=== PATIENT | male | born 1975 | race Caucasian/White ===

== ENCOUNTER 2016-06-24 17:32 | Emergency (ER) | payer SELFPAY ==
[2016-06-24] MEDS ORDERED: IPRATROPIUM/ALBUTEROL 0.5-2.5 MG/3 ML AMPUL NEB ONE (18:49)
[2016-06-24] MEDS ORDERED: PREDNISONE 20 MG TABLET PO ONE (18:49)
--- NOTE | 2016-06-24 18:54 | ER Document Report ---
ED Medical Screen (RME) - General Chief Complaint: Shortness Of Breath Stated Complaint: SHORTNESS OF BREATH,CHEST TIGHTNESS Mode of Arrival: Ambulatory Information source: Patient TRAVEL OUTSIDE OF THE U.S. IN LAST 30 DAYS: No - HPI Onset: Yesterday Onset/Duration: Gradual, Persistent Quality of pain: No pain Severity: Moderate Associated Symptoms: Chills, Cough (nonproductive), Sweating Exacerbated by: Denies Relieved by: Denies Similar symptoms previously: Yes - NOT RECENT Recently seen / treated by doctor: No Notes: 06/24/16 18:52 RAN OUT OF [email or web address] YESTERDAY - Related Data Smoking: Non-smoker Frequency of alcohol use: Occasional Drug Abuse: None Allergies/Adverse Reactions: amoxicillin Allergy (Verified 06/24/16 18:46) Penicillins Allergy (Verified 06/24/16 18:46) Past Medical History - General Information source: Patient - Social History Cigarette use (# per day): No Chew tobacco use (# tins/day): No Frequency of alcohol use: Occasional Drug Abuse: None Lives with: Spouse/Significant other Family history: None - Past Medical History Cardiac Medical History: Reports: None Pulmonary Medical History: Reports: Hx Asthma Neurological Medical History: Reports: None Endocrine Medical History: Reports: None Renal/ Medical History: Reports: None. Denies: Hx Peritoneal Dialysis Malignancy Medical History: Reports None GI Medical History: Reports: None Musculoskeltal Medical History: Reports None Psychiatric Medical History: Reports: None Surgical Hx: Negative Review of Systems - Review of Systems Constitutional: See HPI EENT: No symptoms reported Cardiovascular: No symptoms reported Respiratory: See HPI Physical Exam - Vital signs Vitals: Temp Pulse Resp BP Pulse Ox 97.6 F 82 20 146/100 H 96 06/24/16 17:50 06/24/16 17:50 06/24/16 17:50 06/24/16 17:50 06/24/16 17:50 Interpretation: Hypertensive - General General appearance: Appears well, Alert In distress: None - HEENT Head: Normocephalic Eyes: Normal Ears: Normal Nasal: Normal Mouth/Lips: Normal Mucous membranes: Normal - Respiratory Respiratory status: No respiratory distress Breath sounds: Rhonchi, Wheezing Course - Vital Signs Vital signs: Temp Pulse Resp BP Pulse Ox 97.6 F 82 20 146/100 H 96 06/24/16 17:50 06/24/16 17:50 06/24/16 17:50 06/24/16 17:50 06/24/16 17:50
[2016-06-24 19:23] LABS: ABSOLUTE BASOPHILS # (AUTO) 0.1 10^3/uL (0.0-0.2); ABSOLUTE EOSINOPHILS # (AUTO) 0.9 10^3/uL (0.0-0.6); ABSOLUTE MONOCYTES (AUTO) 0.9 10^3/uL (0.1-1.4); ABSOLUTE NEUT (AUTO) 7.2 10^3/uL (1.7-8.2); BASOPHILS % (AUTO) 0.9 % (0-2); EOSINOPHILS % (AUTO) 7.2 % (0-6); HEMATOCRIT 46.2 % (37.9-51.0); HEMOGLOBIN 15.3 g/dL (13.5-17.0); HGB HCT DIFFERENCE -0.3; MEAN CORPUSCULAR HEMOGLOBIN 29.1 pg (27.0-33.4); MEAN CORPUSCULAR HGB CONC 33.1 g/dL (32.0-36.0); MEAN CORPUSCULAR VOLUME 88 fl (80-97); MONOCYTES % (AUTO) 7.1 % (3-13); RED BLOOD COUNT 5.26 10^6/uL (4.35-5.55); RED CELL DISTRIBUTION WIDTH 13.7 % (11.5-14.0); SEGMENTED NEUTROPHILS % (AUTO) 59.8 % (42-78)
--- NOTE | 2016-06-24 19:29 | ER Document Report ---
ED General - General Chief Complaint: Shortness Of Breath Stated Complaint: SHORTNESS OF BREATH,CHEST TIGHTNESS Mode of Arrival: Ambulatory Information source: Patient Notes: This is a 40-year-old male with a past medical history significant for asthma that has required hospitalization and intubation several years in the past who presents with increase in weakness for the past 2 days. Of note he recently moved here from [place] and does not have a primary care physician at this time. He did recently run out of his inhaler but has been using his nebulizer. He denies any fevers or chills. He is tolerating PO without difficulty. TRAVEL OUTSIDE OF THE U.S. IN LAST 30 DAYS: No - Related Data Allergies/Adverse Reactions: amoxicillin Allergy (Verified 06/24/16 18:46) Penicillins Allergy (Verified 06/24/16 18:46) Past Medical History - General Information source: Patient - Social History Smoking Status: Former Smoker Cigarette use (# per day): No Chew tobacco use (# tins/day): No Frequency of alcohol use: Occasional Drug Abuse: None Lives with: Spouse/Significant other Family History: Reviewed & Not Pertinent Patient has suicidal ideation: No Patient has homicidal ideation: No - Past Medical History Cardiac Medical History: Reports: None Pulmonary Medical History: Reports: Hx Asthma Neurological Medical History: Reports: None Endocrine Medical History: Reports: None Renal/ Medical History: Reports: None. Denies: Hx Peritoneal Dialysis Malignancy Medical History: Reports None GI Medical History: Reports: None Musculoskeltal Medical History: Reports None Psychiatric Medical History: Reports: None Surgical Hx: Negative Review of Systems - Review of Systems Constitutional: denies: Chills, Fever EENT: No symptoms reported Cardiovascular: No symptoms reported. denies: Chest pain Respiratory: See HPI Gastrointestinal: No symptoms reported. denies: Abdominal pain, Vomiting Genitourinary: No symptoms reported Musculoskeletal: No symptoms reported Skin: No symptoms reported Hematologic/Lymphatic: No symptoms reported Neurological/Psychological: No symptoms reported Physical Exam - Vital signs Vitals: Temp Pulse Resp BP Pulse Ox 97.6 F 82 20 146/100 H 96 06/24/16 17:50 06/24/16 17:50 06/24/16 17:50 06/24/16 17:50 06/24/16 17:50 - Notes Notes: PHYSICAL EXAMINATION: GENERAL: Well-appearing, well-nourished and in no acute distress. Pleasant and conversant, no conversational dyspnea. HEAD: Atraumatic, normocephalic. EYES: Pupils equal round and reactive to light, extraocular movements intact, sclera anicteric, conjunctiva are normal. ENT: nares patent, oropharynx clear without exudates. Moist mucous membranes. NECK: Normal range of motion, supple without lymphadenopathy LUNGS: Diffuse bilateral scattered inspiratory wheezes. No rhonchi or rales. Good air movement bilaterally. HEART: Regular rate and rhythm without murmurs ABDOMEN: Soft, nontender, normoactive bowel sounds. No guarding, no rebound. No masses appreciated. EXTREMITIES: Normal range of motion, no pitting or edema. No cyanosis. NEUROLOGICAL: Cranial nerves grossly intact. Normal speech. No gross focal motor or sensory deficits appreciated. PSYCH: Normal mood, normal affect. SKIN: Warm, Dry, normal turgor, no rashes or lesions noted. Course - Re-evaluation Re-evalutation: 06/24/16 20:56 Patient reevaluated. He states that he feels much better after the 2 nebs. His lung exam demonstrates good air movement bilaterally with just faint occasional scattered expiratory wheeze. Pt will be discharged on prednisone and zpack, and Breo and albuterol MDI refilled. He is instructed to arrange primary care physician in this area, and we discussed strict return precautions. He is very comfortable with this plan, all questions answered. - Vital Signs Vital signs: Temp Pulse Resp BP Pulse Ox 97.6 F 84 20 134/96 H 98 06/24/16 19:50 06/24/16 20:53 06/24/16 20:53 06/24/16 20:53 06/24/16 20:53 - Laboratory Result Diagrams: 06/24/16 19:02 06/24/16 19:02 Laboratory results interpreted by me: 06/24/16 06/24/16 19:02 19:02 WBC 12.0 H Eosinophils % 7.2 H Absolute Eosinophils 0.9 H AST 16 L - EKG Interpretation by Me Additional EKG results interpreted by me: 06/24/16 19:28 EKG at 1754 demonstrates normal sinus rhythm with a rate of 85. QT and QRS intervals are within normal limits. Normal axis. There is no ST segment elevation or depression. Discharge - Discharge Clinical Impression: Asthma exacerbation Condition: Stable Disposition: HOME, SELF-CARE Additional Instructions: ASTHMA: You have been diagnosed as having asthma. This is a condition where there is episodic tightness in the bronchial tubes. Allergies, infections, and polluted or cold air may be contributing factors. Emergency treatment of a severe asthma attack may include adrenaline shots , or bronchodilator aerosol. You may feel lightheaded, have a decreased exercise tolerance and a rapid pulse for an hour or two. Rest and get plenty of fluids. Home treatment of asthma requires bronchodilator drugs. These can be administered by injection, inhalation, or by mouth. Antibiotics and corticosteroids may be required for some patients. You should avoid chemical fumes, dusts, pollens, and exercising in very cold or dry air. If you smoke, stop!! If you develop a fever, increased wheezing, chest pain, or severe shortness of breath, you should contact the doctor immediately. STEROID MEDICATION: You have been given an injection of or oral medicine of the cortisone/ steroid class. This medication is used to control inflammation or allergy. [place] t is usually only given for a short period of time, until the acute process subsides. There are usually no side effects from short-term use of cortisone-like medications. Some persons feel an increased sense of well-being and are not sleepy at bedtime. Long-term use of cortisone medications is best avoided, unless required for a severe condition. If your condition does not remit, or relapses after the course of corticosteroid medication, you should consult your physician. INHALED BRONCHODILATORS: You have received treatment(s) of and/or prescription for an inhaled bronchodilator -- a medication which stimulates the airways in the lung to dilate. This improves the flow of air in asthma, bronchitis, and emphysema. These medicines have some similarity to adrenaline, and can cause similar side effects: shakiness, racing heart, and a sense of nervousness. These side effects decrease with time. Contact your doctor if these side effects are severe. Do not over-use the medicine. Too-frequent use of the inhaler may make it ineffective. Call your doctor if the inhaler is not controlling your symptoms at the prescribed doses. ANTIBIOTIC THERAPY: You have been given an antibiotic prescription. It's important that you take all the medication, unless instructed otherwise by your physician. Failure to complete the entire course can result in relapse of your condition. Common side effects of antibiotics include nausea, intestinal cramping, or diarrhea. Women may develop vaginal yeast infections, and babies can get yeast (thrush) in the mouth following the use of antibiotics. Contact your physician if you develop significant side effects from this medication. Allergy to this antibiotic can result in hives, wheezing, faintness, or itching. If symptoms of allergy occur, stop the medication and call your doctor. AZITHROMYCIN: Azithromycin (Zithromax) is a broad spectrum antibiotic in the same class as erythromycin. It can treat a variety of bacterial infections, but is most frequently used for respiratory infections. Azithromycin is extremely long-lasting. It accumulates in body tissues and continues to kill bacteria for many days. In order to improve absorption, Azithromycin should be taken at least one hour before or two hours after a meal. It does not have the same strong tendency to upset the stomach as erythromycin and is usually very well tolerated. Patients who have had a rash or other true allergic reactions to erythromycin should not take this medication. Call if you develop gastrointestinal distress, severe diarrhea, rash, hives, itching, or shortness of breath. FOLLOW-UP CARE: If you have been referred to a physician for follow-up care, call the physician s office for an appointment as you were instructed or within the next two days. If you experience worsening or a significant change in your symptoms, notify the physician immediately or return to the Emergency Department at any time for re-evaluation. Prescriptions: Albuterol Sulfate [Proair HFA Inhalation Aerosol 8.5 gm MDI] 2 puff IH Q4H PRN # 1 mdi PRN Reason: Azithromycin [Zithromax 250 mg Tablet] 250 mg PO ASDIR PRN #6 tablet PRN Reason: Fluticasone/Vilanterol [Breo Ellipta 200-25 Mcg INH] 1 each IH DAILY #1 [facility] Prednisone [Deltasone 20 mg Tablet] 3 tab PO DAILY 4 Days Forms: Return to Work
[2016-06-24 19:37] LABS: ALANINE AMINOTRANSFERASE 27 U/L (21-72); ALBUMIN 4.1 g/dL (3.5-5.0); ALKALINE PHOSPHATASE 74 U/L (38-126); ANION GAP 14 (5-19); ASPARTATE AMINO TRANSFERASE 16 U/L (17-59); BILIRUBIN,DIRECT 0.3 mg/dL (0.0-0.4); BILIRUBIN,TOTAL 0.5 mg/dL (0.2-1.3); BLOOD UREA NITROGEN 14 mg/dL (7-20); CALCIUM 9.3 mg/dL (8.4-10.2); CARBON DIOXIDE 24 mmol/L (22-30); CHLORIDE 104 mmol/L (98-107); CREATININE RESULT 0.69 mg/dL (0.52-1.25); GLUCOSE 98 mg/dL (75-110); POTASSIUM 4.3 mmol/L (3.6-5.0); SODIUM 141.7 mmol/L (137-145)
[2016-06-24] MEDS ORDERED: LEVALBUTEROL HCL NEB 1.25 MG/3 ML AMPUL NEB ONE (19:49)
[2016-06-24 20:53] VITALS: BP 134/96
--- NOTE | 2016-06-25 08:09 | EKG REPORT ---
SEVERITY:- ABNORMAL ECG - SINUS RHYTHM CONSIDER POSTERIOR INFARCT : Confirmed by: Richi Erazo MD 25-Jun-2016 08:09:00
== END 2016-06-24 21:14 | disposition home or self-care (01) ==
LOC: ER 17:32
DX: J45.901 Unspecified asthma with (acute) exacerbation (principal); R06.02 Shortness of breath; Z87.891 Personal history of nicotine dependence
CPT/HCPCS: 93005; 94640 ×2; 99285; 36415; 85025; 80053; 71020; 93010; J7512; J3490; J7620

== ENCOUNTER 2016-12-17 15:31 | Emergency (ER) | payer OTHER ==
[2016-12-17] MEDS ORDERED: NORMAL SALINE 1000 ML 1,000 ML IV ONE (15:41)
--- NOTE | 2016-12-17 15:44 | ER Document Report ---
ED Medical Screen (RME) - General Stated Complaint: VOMITING Time Seen by Provider: 12/17/16 15:40 Mode of Arrival: Ambulatory Information source: Patient, Relative TRAVEL OUTSIDE OF THE U.S. 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 He has had diarrhea intermittently for several days. - Related Data Allergies/Adverse Reactions: amoxicillin Allergy (Verified 06/24/16 18:46) Penicillins Allergy (Verified 06/24/16 18:46) Past Medical History - Social History Family history: None Pulmonary Medical History: Reports: Hx Asthma Renal/ Medical History: Denies: Hx Peritoneal Dialysis
[2016-12-17 16:20] LABS: ABSOLUTE BASOPHILS # (AUTO) 0.1 10^3/uL (0.0-0.2); ABSOLUTE EOSINOPHILS # (AUTO) 0.4 10^3/uL (0.0-0.6); ABSOLUTE LYMPHOCYTES (AUTO) 2.2 10^3/uL (0.5-4.7); ABSOLUTE MONOCYTES (AUTO) 0.8 10^3/uL (0.1-1.4); ABSOLUTE NEUT (AUTO) 13.1 10^3/uL (1.7-8.2); BASOPHILS % (AUTO) 0.7 % (0-2); EOSINOPHILS % (AUTO) 2.5 % (0-6); HEMATOCRIT 46.8 % (37.9-51.0); HGB HCT DIFFERENCE 1.2; LYMPHOCYTES % (AUTO) 13.2 % (13-45); MEAN CORPUSCULAR HEMOGLOBIN 30.2 pg (27.0-33.4); MEAN CORPUSCULAR HGB CONC 34.2 g/dL (32.0-36.0); MEAN CORPUSCULAR VOLUME 88 fl (80-97); RED CELL DISTRIBUTION WIDTH 13.3 % (11.5-14.0); SEGMENTED NEUTROPHILS % (AUTO) 78.6 % (42-78); WHITE BLOOD COUNT 16.7 10^3/uL (4.0-10.5)
[2016-12-17 16:38] LABS: APPEARANCE,URINE SLIGHTLY-CLOUDY; BILIRUBIN,URINE NEGATIVE (NEGATIVE); GLUCOSE, URINE NEGATIVE (NEGATIVE); KETONES,URINE NEGATIVE (NEGATIVE); LEUKOCYTE ESTERASE,URINE NEGATIVE (NEGATIVE); NITRITE,URINE NEGATIVE (NEGATIVE); PROTEIN,URINE NEGATIVE (NEGATIVE); URINE SPECIFIC GRAVITY 1.028; UROBILINOGEN,URINE NEGATIVE mg/dL (<2.0)
[2016-12-17 16:45] LABS: ALANINE AMINOTRANSFERASE 29 U/L (21-72); ALBUMIN 4.5 g/dL (3.5-5.0); ALKALINE PHOSPHATASE 81 U/L (38-126); ANION GAP 16 (5-19); ASPARTATE AMINO TRANSFERASE 15 U/L (17-59); BILIRUBIN,DIRECT 0.3 mg/dL (0.0-0.4); BILIRUBIN,TOTAL 0.5 mg/dL (0.2-1.3); BLOOD UREA NITROGEN 16 mg/dL (7-20); CALCIUM 9.6 mg/dL (8.4-10.2); CARBON DIOXIDE 22 mmol/L (22-30); CHLORIDE 105 mmol/L (98-107); CREATININE RESULT 0.86 mg/dL (0.52-1.25); GLUCOSE 117 mg/dL (75-110); POTASSIUM 4.5 mmol/L (3.6-5.0); SODIUM 143.1 mmol/L (137-145); TOTAL PROTEIN 7.8 g/dL (6.3-8.2)
[2016-12-17] MEDS ORDERED: NORMAL SALINE 1000 ML 1,000 ML IV PRN (18:03)
[2016-12-17] MEDS ORDERED: ONDANSETRON HCL INJ/PF 4 MG/2 ML SDV IV ONE (18:03)
--- NOTE | 2016-12-17 18:23 | ER Document Report ---
ED GI/ - General Chief Complaint: Abdominal Pain Stated Complaint: VOMITING Time Seen by Provider: 12/17/16 15:40 Mode of Arrival: Ambulatory Information source: Patient TRAVEL OUTSIDE OF THE U.S. IN LAST 30 DAYS: No - HPI Patient complains to provider of: Abdominal pain, Diarrhea Onset: This morning Timing/Duration: Sudden Quality of pain: Achy, Cramping Severity at maximum: Moderate Severity in ED: Moderate Pain Level: 3 Location: Epigastric, LUQ, LLQ Associated symptoms: Diarrhea, Nausea Exacerbated by: Denies Relieved by: Denies Notes: 12/17/16 18:21 Patient is a 41-year-old male presenting to the emergency room complaining of crampy abdominal pain with "explosive diarrhea" that started around 2:00 in the morning, he reports nasty taste in his mouth consistent with acid reflux, and nausea but no vomiting, he had a subjective fever this morning as well, he is concerned he may have some sort of infectious diarrhea as he ate chicken livers last night that he believed were fully cooked, and his works in [employer] may have come in contact with C. difficile recently, although she is not ill, he is also concerned that he had a nosebleed last night around 10 minutes after having some sneezing, patient denies any urinary symptoms - Related Data Allergies/Adverse Reactions: amoxicillin Allergy (Verified 06/24/16 18:46) Penicillins Allergy (Verified 06/24/16 18:46) Past Medical History - General Information source: Patient, Relative - Social History Smoking Status: Former Smoker Chew tobacco use (# tins/day): No Frequency of alcohol use: None Drug Abuse: None Family History: Reviewed & Not Pertinent Patient has suicidal ideation: No Patient has homicidal ideation: No - Past Medical History Cardiac Medical History: Reports: Hx Hypertension Pulmonary Medical History: Reports: Hx Asthma Renal/ Medical History: Denies: Hx Peritoneal Dialysis GI Medical History: Reports: Hx Gastroesophageal Reflux Disease - EOE Past Surgical History: Reports: Hx Cardiac Catheterization - 2009 in [place], no stents - Immunizations Hx Diphtheria, Pertussis, Tetanus Vaccination: Yes Review of Systems - Review of Systems Constitutional: Chills, Fever EENT: No symptoms reported Cardiovascular: No symptoms reported Respiratory: No symptoms reported Gastrointestinal: See HPI Genitourinary: No symptoms reported Male Genitourinary: No symptoms reported Musculoskeletal: No symptoms reported Skin: No symptoms reported Hematologic/Lymphatic: No symptoms reported Neurological/Psychological: No symptoms reported -: Yes All other systems reviewed and negative Physical Exam - Vital signs Vitals: Temp Pulse Resp BP Pulse Ox 98.2 F 96 18 132/84 H 96 12/17/16 15:39 12/17/16 15:39 12/17/16 15:39 12/17/16 15:39 12/17/16 15:39 Interpretation: Normal - General General appearance: Appears well, Alert - HEENT Head: Normocephalic, Atraumatic Eyes: Normal Pupils: PERRL - Respiratory Respiratory status: No respiratory distress Chest status: Nontender Breath sounds: Normal Chest palpation: Normal - Cardiovascular Rhythm: Regular Heart sounds: Normal auscultation Murmur: No - Abdominal Inspection: Normal Distension: Distended - mild distention Bowel sounds: Normal Tenderness: Tender - Epigastric, left upper quadrant, left lower quadrant Organomegaly: No organomegaly - Back Back: Normal, Nontender - Extremities General upper extremity: Normal inspection, Nontender, Normal color, Normal ROM , Normal temperature General lower extremity: Normal inspection, Nontender, Normal color, Normal ROM , Normal temperature, Normal weight bearing. No: Franny's sign - Neurological Neuro grossly intact: Yes Cognition: Normal Orientation: AAOx4 Leatha Coma Scale Eye Opening: Spontaneous Leopold Coma Scale Verbal: Oriented Leopold Coma Scale Motor: Obeys Commands Leatha Coma Scale Total: 15 Speech: Normal Motor strength normal: LUE, RUE, LLE, RLE Sensory: Normal - Psychological Associated symptoms: Normal affect, Normal mood - Skin Skin Temperature: Warm Skin Moisture: Dry Skin Color: Normal Course - Re-evaluation Re-evalutation: 12/17/16 19:08 Patient resting comfortably, reports no change in condition, findings were discussed with patient and at bedside which are consistent with infectious diarrhea process, he was advised to follow-up for repeat imaging of the abdomen given the "leon mesentery" findings which could be a concern for lymphoma, patient agrees to follow-up, patient is otherwise stable for discharge, he will be started on Cipro and Flagyl and provided with prescription for Zofran as well as information for follow-up, advised to return if symptoms worsen or fail to improve over the next 2-3 days, patient and acknowledge understanding and agreement with this plan - Vital Signs Vital signs: Temp Pulse Resp BP Pulse Ox 98.0 F 83 16 125/80 97 12/17/16 17:49 12/17/16 17:49 12/17/16 17:49 12/17/16 17:49 12/17/16 17:49 - Laboratory Result Diagrams: 12/17/16 16:06 12/17/16 16:06 Laboratory results interpreted by me: 12/17/16 12/17/16 12/17/16 15:54 16:06 16:06 WBC 16.7 H Seg Neutrophils % 78.6 H Absolute Neutrophils 13.1 H Glucose 117 H AST 15 L Urine Blood SMALL H - Diagnostic Test Radiology reviewed: Image reviewed, Reports reviewed Discharge - Discharge Clinical Impression: Panniculitis Diarrhea Qualifiers: Diarrhea type: infectious Qualified Code(s): A09 - Infectious gastroenteritis and colitis, unspecified Condition: Stable Disposition: HOME, SELF-CARE Instructions: Abdominal Pain ([facility]), Diarrhea, Nonspecific ([facility]), Gastroenterology Additional Instructions: Follow up with your primary care provider and social worker clinical in one to 2 days. Return to the emergency room immediately if symptoms worsen or any additional concerns. Prescriptions: Ciprofloxacin HCl [Cipro 500 mg Tablet] 500 mg PO BID #20 tablet Metronidazole [Flagyl 500 mg Tablet] 500 mg PO TID #30 tablet Ondansetron [Zofran Odt 4 mg Tablet] 1 - 2 tab PO Q4H #20 tab.rapdis Forms: Return to Work
--- NOTE | 2016-12-17 18:50 | RADIOLOGY REPORT (SQ) ---
EXAM DESCRIPTION: CT ABD/PELVIS WITH IV ONLY COMPLETED DATE/TIME: 12/17/2016 6:39 pm REASON FOR STUDY: left side pain, diarrhea COMPARISON: None. TECHNIQUE: CT scan of the abdomen and pelvis performed using helical scanning technique with dynamic intravenous contrast injection. No oral contrast. Images reviewed with lung, soft tissue, and bone windows. Reconstructed coronal and sagittal MPR images reviewed. Delayed images for evaluation of the urinary system also acquired. All images stored on PACS. All CT scanners at this facility use dose modulation, iterative reconstruction, and/or weight based d osing when appropriate to reduce radiation dose to as low as reasonably achievable (ALARA). [facility]: Dose Right [facility]: CareDose [facility]: Dose Right [facility]: Teradose 4D [facility]: Captricity CONTRAST TYPE AND DOSE: 100 mL Isovue 370- low osmolar. RENAL FUNCTION: None required. The patient is less than 50 years old. RADIATION DOSE: . LIMITATIONS: None. FINDINGS: LOWER CHEST: No significant findings. No nodules or infiltrates. LIVER: Normal size. No masses. No dilated ducts. SPLEEN: Normal size. No focal lesions. PANCREAS: No masses. No significant calcifications. No adjacent inflammation or peripancreatic fluid collections. Pancreatic duct not dilated. GALLBLADDER: No identified stones by CT criteria. No inflammatory changes to suggest cholecystitis. ADRENAL GLANDS: No significant masses or asymmetry. RIGHT KIDNEY AND URETER: No solid masses. No significant calcifications. No hydronephrosis or hyd roureter. LEFT KIDNEY AND URETER: No solid masses. No significant calcifications. No hydronephrosis or hydr oureter. AORTA AND VESSELS: No aneurysm. No dissection. Renal arteries, SMA, celiac without stenosis. RETROPERITONEUM: No retroperitoneal adenopathy, hemorrhage or masses. BOWEL AND PERITONEAL CAVITY: Mild stranding involving the mesenteric root with scattered subcentimete r lymph nodes resulting in "leon mesentery". No masses or additional inflammatory changes. No free fluid or peritoneal masses. APPENDIX: Normal. PELVIS: No mass. No free fluid. Normal bladder. ABDOMINAL WALL: No masses. No hernias. BONES: No significant or acute findings. OTHER: No other significant finding. IMPRESSION: MILD LEON MESENTERY WHICH IS NONSPECIFIC MOST COMMONLY SEEN WITH PANNICULITIS. RECOMME ND SIX-MONTH FOLLOW-UP CT TO ENSURE STABILITY/ RESOLUTION IS EARLY NEOPLASTIC PROCESS SUCH LYMP EVARISTO COULD HAVE THIS APPEARANCE. NO ADDITIONAL ACUTE OR SIGNIFICANT FINDINGS. TECHNICAL DOCUMENTATION: JOB ID: [id number] Quality ID # [id number]: Final reports with documentation of one or more dose reduction techniques (e.g., Au tomated exposure control, adjustment of the mA and/or kV according to patient size, use of iterative reconstruction technique) 2010 [employer]- All Rights Reserved
[2016-12-17 18:54] VITALS: BP 125/80
[2016-12-17] MEDS ORDERED: CIPROFLOXACIN HCL 500 MG TABLET PO ONE (19:07)
[2016-12-17] MEDS ORDERED: METRONIDAZOLE 500 MG TABLET PO ONE (19:08)
[2016-12-17] MEDS ORDERED: ONDANSETRON ODT 4 MG TAB (6 TAB/DSPK) PO PRN (19:08)
== END 2016-12-17 19:53 | disposition home or self-care (01) ==
LOC: ER 15:31
DX: A09 Infectious gastroenteritis and colitis, unspecified (principal); M79.3 Panniculitis, unspecified; R50.9 Fever, unspecified; R10.13 Epigastric pain; R10.12 Left upper quadrant pain; R10.32 Left lower quadrant pain; I10 Essential (primary) hypertension; J45.909 Unspecified asthma, uncomplicated
CPT/HCPCS: 99284; 96361; 96374; 36415; 87045; 89055; 87205; 85025; 80053; 81001; 87493; 74177; J2405; J7030

== ENCOUNTER 2017-09-07 10:49 | Emergency (ER) | payer SELFPAY ==
[2017-09-07] MEDS ORDERED: ALBUTEROL SULFATE 0.083% NEB 2.5 MG/3 ML AMPUL NEB ONE (11:24)
[2017-09-07] MEDS ORDERED: METHYLPREDNISOLONE INJ 125 MG/2 ML SDV IV ONE (11:24)
[2017-09-07] MEDS ORDERED: IPRATROPIUM/ALBUTEROL 0.5-2.5 MG/3 ML AMPUL NEB ONE ×2 (11:24→14:08)
--- NOTE | 2017-09-07 11:25 | ER Document Report ---
ED Medical Screen (RME) - General Chief Complaint: Chest Pain Stated Complaint: CHEST PAIN Time Seen by Provider: 09/07/17 10:54 Mode of Arrival: Wheelchair Information source: Patient TRAVEL OUTSIDE OF THE U.S. IN LAST 30 DAYS: No - HPI Patient complains to provider of: Difficulty breathing, chest tightness, wheezing Onset: Last week Onset/Duration: Gradual, Persistent Quality of pain: Achy Severity: Moderate Pain Level: 3 Associated Symptoms: Cough (nonproductive) Similar symptoms previously: Yes Notes: 09/07/17 11:25 Patient is a 41-year-old non-smoker with a history of asthma presents to the emergency room with complaint of chest tightness with difficulty breathing and wheezing that has worsened over the past week, he uses nebulizer treatments at home with minimal intermittent relief - Related Data Allergies/Adverse Reactions: amoxicillin Allergy (Verified 06/24/16 18:46) Penicillins Allergy (Verified 06/24/16 18:46) Past Medical History - Social History Chew tobacco use (# tins/day): No Frequency of alcohol use: None Drug Abuse: None Family history: None - Past Medical History Cardiac Medical History: Reports: Hx Hypertension Pulmonary Medical History: Reports: Hx Asthma Renal/ Medical History: Denies: Hx Peritoneal Dialysis GI Medical History: Reports: Hx Gastroesophageal Reflux Disease - EOE Past Surgical History: Reports: Hx Cardiac Catheterization - 2009 in [place], no stents - Immunizations Hx Diphtheria, Pertussis, Tetanus Vaccination: Yes History of Influenza Vaccine for 11/2016 - 04/2017 Season: No Physical Exam - Vital signs Vitals: Temp Pulse Resp BP Pulse Ox 97.4 F 71 16 130/82 H 96 09/07/17 10:59 09/07/17 10:59 09/07/17 10:59 09/07/17 10:59 09/07/17 10:59 Course - Vital Signs Vital signs: Temp Pulse Resp BP Pulse Ox 97.4 F 71 16 130/82 H 96 09/07/17 10:59 09/07/17 10:59 09/07/17 10:59 09/07/17 10:59 09/07/17 10:59 Doctor's Discharge - Discharge Referrals: SILVER OROZCO DO [Primary Care Provider] - Follow up as needed
[2017-09-07] MEDS ORDERED: IPRATROPIUM/ALBUTEROL 0.5-2.5 MG/3 ML AMPUL NEB SCH (11:45)
--- NOTE | 2017-09-07 11:45 | ER Document Report ---
ED Respiratory Problem - General Chief Complaint: Chest Pain Stated Complaint: CHEST PAIN Time Seen by Provider: 09/07/17 10:54 Mode of Arrival: Wheelchair Notes: Patient with a history of asthma who says he is wheezing and short of breath and difficulty breathing this been going on for about a week, but got worse this morning. Says he feels like he cannot breathe. Patient has a home nebulizer in which he uses albuterol. He also has a pro-air inhaler and uses Brio in his nebulizer. Patient says he is congested and has some cough but not producing much phlegm. Did notice some fever earlier this morning. Patient has a history of seizures. Has had 2 heart attacks. Hypertension. Stop smoking 11 years ago. TRAVEL OUTSIDE OF THE [place] IN LAST 30 DAYS: No - Related Data Allergies/Adverse Reactions: amoxicillin Allergy (Verified 06/24/16 18:46) Penicillins Allergy (Verified 06/24/16 18:46) Past Medical History - General Information source: Patient - Social History Smoking Status: Former Smoker Chew tobacco use (# tins/day): No Frequency of alcohol use: None Drug Abuse: None Family History: Reviewed & Not Pertinent Patient has suicidal ideation: No Patient has homicidal ideation: No - Past Medical History Cardiac Medical History: Reports: Hx Hypertension Pulmonary Medical History: Reports: Hx Asthma, Hx Pneumonia GI Medical History: Reports: Hx Gastroesophageal Reflux Disease - EOE Past Surgical History: Reports: Hx Cardiac Catheterization - 2009 in [place], no stents - Immunizations Hx Diphtheria, Pertussis, Tetanus Vaccination: Yes Review of Systems - Review of Systems Notes: REVIEW OF SYSTEMS: CONSTITUTIONAL : Fever this morning. EENT: Denies eye, ear, nose or mouth or throat pain or other symptoms. CARDIOVASCULAR: Denies chest pain. RESPIRATORY: See HPI. GASTROINTESTINAL: Denies abdominal pain or nausea, vomiting, or diarrhea. GENITOURINARY: Denies difficulty or painful urinating, urinary frequency, blood in urine. MUSCULOSKELETAL: Denies back or neck pain. Denies joint pain or swelling. SKIN: Denies rash or skin lesions. NEUROLOGICAL: Denies LOC or altered mental status. Denies headache. Denies sensory loss or motor deficits. ALL OTHER SYSTEMS REVIEWED AND NEGATIVE. Physical Exam - Vital signs Vitals: Temp Pulse Resp BP Pulse Ox 97.4 F 71 16 130/82 H 96 09/07/17 10:59 09/07/17 10:59 09/07/17 10:59 09/07/17 10:59 09/07/17 10:59 Interpretation: Normal, Other - O2 sat 96%. - Notes Notes: PHYSICAL EXAMINATION: GENERAL: Well-appearing, in no acute distress. Weight 141 kg. Vital signs are all normal. Not hypoxic. HEAD: Atraumatic, normocephalic. EYES: Pupils equal round and reactive to light, extraocular movements intact. ENT: oropharynx clear without exudates. Moist mucous membranes. NECK: Normal range of motion, supple. LUNGS: Diffuse expiratory wheezes bilaterally. No rales heard. HEART: Regular rate and rhythm without murmurs. No edema of the lower extremities. ABDOMEN: Soft, nontender. No guarding or rebound. No masses. BACK: No tenderness throughout entire back. EXTREMITIES: Normal range of motion without pain. Negative Homans bilaterally. NEUROLOGICAL: Normal speech, normal gait. Normal sensory, motor, and reflex exams. Awake, alert, and oriented x3. PSYCH: Normal mood, normal affect. SKIN: Warm, dry, no rashes. Course - Re-evaluation Re-evalutation: 09/07/17 11:45 Patient was started on nebulizer treatments and given 125 mg of Solu-Medrol IV. 09/07/17 14:06 Patient says he is now feeling somewhat better although still wheezing. Lungs do sound like they are more clear than they were although he does have some fine expiratory wheezes still present. Oxygen saturation is 96-98% on oxygen so I am discontinuing the oxygen. He has had 3 nebulizer treatments and I will give him a fourth and about a half hour. At that time, I will reassess him to see if he needs admission or not. 09/07/17 15:21 Patient sounds much better now. Only very fine wheezes heard in the upper anterior lung wheeler. Not hardly any heard posteriorly. Vital signs on room air or fine with his O2 sat running 93 or 94 up to 96-97% on room air. - Vital Signs Vital signs: Temp Pulse Resp BP Pulse Ox 97.5 F 83 20 121/91 H 95 09/07/17 15:30 09/07/17 15:30 09/07/17 15:30 09/07/17 15:30 09/07/17 15:30 - Laboratory Result Diagrams: 09/07/17 11:45 09/07/17 13:00 Laboratory results interpreted by me: 09/07/17 11:45 Eosinophils % 8.9 H Absolute Eosinophils 0.9 H Discharge - Discharge Clinical Impression: Asthma attack Condition: Stable Disposition: HOME, SELF-CARE Additional Instructions: ASTHMA: You have been diagnosed as having asthma. This is a condition where there is episodic tightness in the bronchial tubes. Allergies, infections, and polluted or cold air may be contributing factors. Emergency treatment of a severe asthma attack may include adrenaline shots , or bronchodilator aerosol. You may feel lightheaded, have a decreased exercise tolerance and a rapid pulse for an hour or two. Rest and get plenty of fluids. Home treatment of asthma requires bronchodilator drugs. These can be administered by injection, inhalation, or by mouth. Antibiotics and corticosteroids may be required for some patients. You should avoid chemical fumes, dusts, pollens, and exercising in very cold or dry air. If you smoke, stop!! If you develop a fever, increased wheezing, chest pain, or severe shortness of breath, you should contact the doctor immediately. STEROID MEDICATION: You have been given an injection of or oral medicine of the cortisone/ steroid class. This medication is used to control inflammation or allergy. [place] t is usually only given for a short period of time, until the acute process subsides. There are usually no side effects from short-term use of cortisone-like medications. Some persons feel an increased sense of well-being and are not sleepy at bedtime. Long-term use of cortisone medications is best avoided, unless required for a severe condition. If your condition does not remit, or relapses after the course of corticosteroid medication, you should consult your physician. INHALED BRONCHODILATORS: You have received treatment(s) of and/or prescription for an inhaled bronchodilator -- a medication which stimulates the airways in the lung to dilate. This improves the flow of air in asthma, bronchitis, and emphysema. These medicines have some similarity to adrenaline, and can cause similar side effects: shakiness, racing heart, and a sense of nervousness. These side effects decrease with time. Contact your doctor if these side effects are severe. Do not over-use the medicine. Too-frequent use of the inhaler may make it ineffective. Call your doctor if the inhaler is not controlling your symptoms at the prescribed doses. Continue to use your home medications as before. FOLLOW-UP CARE: If you have been referred to a physician for follow-up care, call the physician s office for an appointment as you were instructed or within the next two days. If you experience worsening or a significant change in your symptoms, notify the physician immediately or return to the Emergency Department at any time for re-evaluation. Prescriptions: Prednisone [Deltasone 10 mg Tablet] 10 mg PO ASDIR PRN #21 tablet PRN Reason: Referrals: SILVER OROZCO DO [Primary Care Provider] - Follow up as needed
[2017-09-07 11:56] LABS: ABSOLUTE BASOPHILS # (AUTO) 0.1 10^3/uL (0.0-0.2); ABSOLUTE EOSINOPHILS # (AUTO) 0.9 10^3/uL (0.0-0.6); ABSOLUTE LYMPHOCYTES (AUTO) 2.2 10^3/uL (0.5-4.7); ABSOLUTE MONOCYTES (AUTO) 0.6 10^3/uL (0.1-1.4); ABSOLUTE NEUT (AUTO) 6.2 10^3/uL (1.7-8.2); EOSINOPHILS % (AUTO) 8.9 % (0-6); HEMATOCRIT 43.2 % (37.9-51.0); LYMPHOCYTES % (AUTO) 21.9 % (13-45); MEAN CORPUSCULAR HEMOGLOBIN 30.4 pg (27.0-33.4); MEAN CORPUSCULAR HGB CONC 34.7 g/dL (32.0-36.0); MEAN CORPUSCULAR VOLUME 88 fl (80-97); PLATELET COUNT 299 10^3/uL (150-450); RED BLOOD COUNT 4.93 10^6/uL (4.35-5.55); RED CELL DISTRIBUTION WIDTH 13.7 % (11.5-14.0); SEGMENTED NEUTROPHILS % (AUTO) 62.2 % (42-78); TOTAL CELLS COUNTED % (AUTO) 100 %; WHITE BLOOD COUNT 9.9 10^3/uL (4.0-10.5)
--- NOTE | 2017-09-07 12:00 | RADIOLOGY REPORT (SQ) ---
EXAM DESCRIPTION: CHEST SINGLE VIEW COMPLETED DATE/TIME: 09/07/2017 11:44 am REASON FOR STUDY: SOB COMPARISON: Two-view chest 06/24/2016 EXAM PARAMETERS: NUMBER OF VIEWS: One view. TECHNIQUE: Single frontal radiographic view of the chest acquired. RADIATION DOSE: NA LIMITATIONS: AP portable film, motion artifact FINDINGS: LUNGS AND PLEURA: No opacities, masses or pneumothorax. No pleural effusion. MEDIASTINUM AND HILAR STRUCTURES: No masses. Contour normal. HEART AND VASCULAR STRUCTURES: Heart normal in size. Normal vasculature. BONES: No acute findings. HARDWARE: None in the chest. OTHER: No other significant finding. IMPRESSION: Limited negative study TECHNICAL DOCUMENTATION: JOB ID: [id number] [employer]- All Rights Reserved Reading location - IP/workstation name: [email or web address]
[2017-09-07 13:52] LABS: ALANINE AMINOTRANSFERASE 37 U/L (21-72); ALBUMIN 3.9 g/dL (3.5-5.0); ALKALINE PHOSPHATASE 76 U/L (38-126); ANION GAP 15 (5-19); ASPARTATE AMINO TRANSFERASE 24 U/L (17-59); BILIRUBIN,DIRECT 0.3 mg/dL (0.0-0.4); BILIRUBIN,TOTAL 0.6 mg/dL (0.2-1.3); BLOOD UREA NITROGEN 11 mg/dL (7-20); CALCIUM 8.9 mg/dL (8.4-10.2); CARBON DIOXIDE 24 mmol/L (22-30); CHLORIDE 103 mmol/L (98-107); GLUCOSE 99 mg/dL (75-110); POTASSIUM 4.7 mmol/L (3.6-5.0); SODIUM 142.4 mmol/L (137-145); TOTAL PROTEIN 7.1 g/dL (6.3-8.2)
[2017-09-07 15:38] VITALS: BP 121/91
--- NOTE | 2017-09-07 21:51 | EKG REPORT ---
SEVERITY:- NORMAL ECG - SINUS RHYTHM : Confirmed by: Saurabh Saravia 07-Sep-2017 21:50:48
== END 2017-09-07 15:33 | disposition home or self-care (01) ==
LOC: ER 10:49
DX: J45.901 Unspecified asthma with (acute) exacerbation (principal); R07.9 Chest pain, unspecified; Z88.0 Allergy status to penicillin; Z87.891 Personal history of nicotine dependence
CPT/HCPCS: 93005; 94640 ×2; 99285; 96374; 36415; 85025; 80053; 84484; 71045; 93010; J2930; J7620

== ENCOUNTER 2018-03-17 12:12 | Emergency (ER) | payer OTHER ==
[2018-03-17] MEDS ORDERED: ASPIRIN 81 MG TABLET, CHEWABLE PO ONE (12:53)
[2018-03-17] MEDS ORDERED: DIVALPROEX SODIUM 500 MG TAB.SR.24H PO ONE (13:05)
[2018-03-17] MEDS ORDERED: NITROGLYCERIN 0.4 MG/TAB 25 TAB/BOTTLE SL PRN (13:06)
[2018-03-17 13:41] LABS: ABSOLUTE LYMPHOCYTES (AUTO) 1.9 10^3/uL (0.5-4.7); ABSOLUTE MONOCYTES (AUTO) 0.5 10^3/uL (0.1-1.4); ABSOLUTE NEUT (AUTO) 7.4 10^3/uL (1.7-8.2); BASOPHILS % (AUTO) 0.3 % (0-2); HEMATOCRIT 42.2 % (37.9-51.0); HEMOGLOBIN 14.7 g/dL (13.5-17.0); LYMPHOCYTES % (AUTO) 19.7 % (13-45); MEAN CORPUSCULAR HEMOGLOBIN 30.6 pg (27.0-33.4); MEAN CORPUSCULAR HGB CONC 34.7 g/dL (32.0-36.0); MEAN CORPUSCULAR VOLUME 88 fl (80-97); MONOCYTES % (AUTO) 5.2 % (3-13); PLATELET COUNT 355 10^3/uL (150-450); RED BLOOD COUNT 4.79 10^6/uL (4.35-5.55); RED CELL DISTRIBUTION WIDTH 13.4 % (11.5-14.0); SEGMENTED NEUTROPHILS % (AUTO) 74.8 % (42-78); TOTAL CELLS COUNTED % (AUTO) 100 %; WHITE BLOOD COUNT 9.9 10^3/uL (4.0-10.5)
--- NOTE | 2018-03-17 13:46 | ER Document Report ---
Entered by ELEUTERIO MILLER SCRIBE 03/17/18 1327 Acting as scribe for:RONALDO DELA CRUZ DO ED Medical Screen (RME) - General Chief Complaint: Chest Pain Stated Complaint: CHEST PAIN Time Seen by Provider: 03/17/18 12:52 Primary Care Provider: SILVER OROZCO DO [Primary Care Provider] - Follow up as needed Notes: 42-year-old male who presents to the emergency department today with complaints of an episode that occurred at work prior to arrival today where he became generally weak, dizzy, developed blurry vision, slurred speech, left arm numbness/tingling, and chest pain. Patient states he leaned up against the ice machine to keep from falling down. Patient describes states his chest pain was initially a stabbing sensation but that sensation has progressed into a dull ache with associated heart palpitations. Patient has had NSTEMI's in the past, in his 30s, and his last stress test and catheterization was in 2008. At that time the patient had a "mild blockage" and no stents were placed. at bedside adds that the patient was started on Faserna one week ago and she is concerned that his presentation today could be medication side effects. I have greeted and performed a rapid initial assessment of this patient. A comprehensive ED assessment and evaluation of the patient, analysis of test results, and completion of the medical decision making process will be conducted by additional ED providers. Review of systems: Constitutional: Generalized weakness. EENT: Blurry vision. Cardiovascular: Chest pain. Respiratory: No symptoms reported Gastrointestinal: No symptoms reported Genitourinary: No symptoms reported Musculoskeletal: No symptoms reported Skin: No symptoms reported Hematologic/Lymphatic: Left arm numbness/tingling. Neurological/Psychological: Slurred speech. Yes All other systems reviewed and negative PHYSICAL EXAM GENERAL: Alert, interacts well. No acute distress. Obese. HEAD: Normocephalic, atraumatic. EYES: Pupils equal, round, and reactive to light. Extraocular movements intact. ENT: Oral mucosa moist, tongue midline. NECK: Full range of motion. Supple. Trachea midline. LUNGS: Clear to auscultation bilaterally, no wheezes, rales, or rhonchi. No respiratory distress. HEART: Regular rate and rhythm. No murmurs, gallops, or rubs. ABDOMEN: LUQ tenderness with palpation. EXTREMITIES: Moves all 4 extremities spontaneously. NEUROLOGICAL: Alert and oriented x3. Normal speech. PSYCH: Appears anxious SKIN: Warm and dry. TRAVEL OUTSIDE OF THE [place] IN LAST 30 DAYS: No - Related Data Allergies/Adverse Reactions: amoxicillin Allergy (Verified 03/17/18 12:14) Penicillins Allergy (Verified 03/17/18 12:14) Past Medical History - Social History Family history: None - Past Medical History Cardiac Medical History: Reports: Hx Heart Attack - [place] x2, Hx Hypertension Pulmonary Medical History: Reports: Hx Asthma, Hx Pneumonia Renal/ Medical History: Denies: Hx Peritoneal Dialysis GI Medical History: Reports: Hx Gastroesophageal Reflux Disease - EOE Past Surgical History: Reports: Hx Cardiac Catheterization - 2009 in [place], no stents - Immunizations Hx Diphtheria, Pertussis, Tetanus Vaccination: Yes History of Influenza Vaccine for 11/2016 - 04/2017 Season: No Physical Exam - Vital signs Vitals: Temp Pulse Resp BP Pulse Ox 97.6 F 76 16 144/87 H 93 03/17/18 12:36 03/17/18 12:36 03/17/18 12:36 03/17/18 12:36 03/17/18 12:36 Course - Vital Signs Vital signs: Temp Pulse Resp BP Pulse Ox 97.6 F 76 16 144/87 H 93 03/17/18 12:36 03/17/18 12:36 03/17/18 12:36 03/17/18 12:36 03/17/18 12:36 Doctor's Discharge - Discharge Referrals: SILVER OROZCO DO [Primary Care Provider] - Follow up as needed I personally performed the services described in the documentation, reviewed and edited the documentation which was dictated to the scribe in my presence, and it accurately records my words and actions.
--- NOTE | 2018-03-17 13:53 | RADIOLOGY REPORT (SQ) ---
EXAM DESCRIPTION: CHEST SINGLE VIEW COMPLETED DATE/TIME: 03/17/2018 1:30 pm REASON FOR STUDY: chest pain COMPARISON: 06/24/2016 EXAM PARAMETERS: NUMBER OF VIEWS: One view. TECHNIQUE: Single frontal radiographic view of the chest acquired. RADIATION DOSE: NA LIMITATIONS: None. FINDINGS: LUNGS AND PLEURA: No opacities, masses or pneumothorax. No pleural effusion. MEDIASTINUM AND HILAR STRUCTURES: No masses. Contour normal. HEART AND VASCULAR STRUCTURES: Heart normal in size. Normal vasculature. BONES: No acute findings. HARDWARE: None in the chest. OTHER: No other significant finding. IMPRESSION: NO ACUTE RADIOGRAPHIC FINDING IN THE CHEST. TECHNICAL DOCUMENTATION: JOB ID: [id number] [employer]- All Rights Reserved Reading location - IP/workstation name: [email or web address]
[2018-03-17 14:01] LABS: ALANINE AMINOTRANSFERASE 22 U/L (21-72); ALBUMIN 4.3 g/dL (3.5-5.0); ALKALINE PHOSPHATASE 77 U/L (38-126); ANION GAP 7 (5-19); ASPARTATE AMINO TRANSFERASE 19 U/L (17-59); BILIRUBIN,DIRECT 0.2 mg/dL (0.0-0.4); BILIRUBIN,TOTAL 0.5 mg/dL (0.2-1.3); BLOOD UREA NITROGEN 12 mg/dL (7-20); CALCIUM 8.7 mg/dL (8.4-10.2); CARBON DIOXIDE 26 mmol/L (22-30); CHLORIDE 110 mmol/L (98-107); CREATINE KINASE 77 U/L (55-170); GLUCOSE 110 mg/dL (75-110); LIPASE 689.8 U/L (23-300); POTASSIUM 3.9 mmol/L (3.6-5.0); SODIUM 142.5 mmol/L (137-145); TOTAL PROTEIN 7.2 g/dL (6.3-8.2)
--- NOTE | 2018-03-17 14:10 | ER Document Report ---
ED General - General Chief Complaint: Chest Pain Stated Complaint: CHEST PAIN Time Seen by Provider: 03/17/18 12:52 Primary Care Provider: SILVER OROZCO DO [Primary Care Provider] - Follow up as needed TRAVEL OUTSIDE OF THE [place] IN LAST 30 DAYS: No - HPI Notes: Patient is a 42-year-old male with a history of hypertension, coronary artery disease with previous and STEMI, eosinophilic asthma, epilepsy, gastroenteritis who presents to the emergency department complaining of left-sided sharp chest pain that does not radiate. Patient states that his symptoms began this morning and have been constant since, but the pain is now a dull ache. Patient states that pressure and movement make the pain worse. Patient states that he did have associated left arm numbness, blurry vision, and a headache that has since resolved. Patient states that he does continue to feel generalized weakness. Patient states that he has had a dry nonproductive cough that began over the day as well. He is otherwise able to eat and drink without difficulty. He is urinating normally and having normal bowel movements. Denies any prolonged immobilization, distance travel, recent surgery/trauma, personal cancer history, hormone use, smoking, or previous DVT/PE. Denies any fever, head injury, neck pain, changes in mentation/hearing, URI, sore throat, palpitations, syncope, shortness of breath, wheeze, dyspnea, abdominal pain, nausea/vomiting/diarrhea, urinary retention, dysuria, hematuria, loss of control of bowel or bladder, numbness/tingling, saddle anesthesia, muscle paralysis/weakness, or rash. - Related Data Allergies/Adverse Reactions: amoxicillin Allergy (Verified 03/17/18 12:14) Penicillins Allergy (Verified 03/17/18 12:14) Past Medical History - Social History Smoking Status: Never Smoker Family History: Reviewed & Not Pertinent Patient has suicidal ideation: No Patient has homicidal ideation: No - Past Medical History Cardiac Medical History: Reports: Hx Heart Attack - [place] x2, Hx Hypertension Pulmonary Medical History: Reports: Hx Asthma, Hx Pneumonia Renal/ Medical History: Denies: Hx Peritoneal Dialysis GI Medical History: Reports: Hx Gastroesophageal Reflux Disease - EOE Past Surgical History: Reports: Hx Cardiac Catheterization - 2009 in [place], no stents - Immunizations Hx Diphtheria, Pertussis, Tetanus Vaccination: Yes Review of Systems - Review of Systems -: Yes All other systems reviewed and negative Physical Exam - Vital signs Vitals: Temp Pulse Resp BP Pulse Ox 97.6 F 76 16 144/87 H 93 03/17/18 12:36 03/17/18 12:36 03/17/18 12:36 03/17/18 12:36 03/17/18 12:36 - Notes Notes: PHYSICAL EXAMINATION: GENERAL: Well-appearing, well-nourished and in no acute distress. A&Ox4. Answers questions appropriately. HEAD: Atraumatic, normocephalic. EYES: Pupils equal round and reactive to light, extraocular movements intact, sclera anicteric, conjunctiva are normal. ENT: Nares patent and without discharge. oropharynx clear without exudates. No tonsilar hypertrophy or erythema. Moist mucous membranes. NECK: Normal range of motion, supple without lymphadenopathy Chest: + reproducible moderate tenderness to palpation of the lt pectoral area and reproducible with arm extension/abduction. LUNGS: Breath sounds clear to auscultation bilaterally and equal. No wheezes rales or rhonchi. HEART: Regular rate and rhythm without murmurs, rubs, gallops. ABDOMEN: Soft, nontender, nondistended abdomen. No guarding, no rebound. No masses appreciated. Normal bowel sounds present. No CVA tenderness bilaterally. Musculoskeletal: Ext's b/l: FROM to passive/active. Strength 5+/5. Franny neg. No asymmetry to LE's. Extremities: No cyanosis, clubbing, or edema b/l. Peripheral pulses 2+. Capillary refill less than 3 seconds. NEUROLOGICAL: NIH 0. GCS 15. Cranial nerves grossly intact. Normal speech, normal gait. Normal sensory, motor exams. Reflexes 2+ b/l. MATT's negative. Pronator drift negative. Heel/coy, finger/nose wnl. PSYCH: Normal mood, normal affect. SKIN: Warm, Dry, normal turgor, no rashes or lesions noted. Course - Re-evaluation Re-evalutation: 03/17/18 17:53 Patient is an afebrile, well-hydrated 42-year-old male who presents to the ED with chest wall pain, atypical chest pain, URI, and other nonspecific symptoms. CT shows sinus disease. Vitals are acceptable without any significant tachycardia, tachypnea, or hypoxia. PE is otherwise unremarkable aside from the reproducible lateral chest wall tenderness by palpation and ROM. Patient is nontoxic-appearing and is tolerating p.o. without any difficulties. Pt is feeling much better. CBC, CMP, EKG/cardiac enzymes 2, chest x-ray, and head CT are all unremarkable for any acute pathology. Patient has a heart score of 3, Wells score of 0, and is PERC negative. Pt did have a d-dimer ordered at triage that was negative. Pt does not have any sob or VALLE. Patient's presentation and symptomatology creates low suspicion for ACS, PE, pneumothorax, pericarditis, dissection, respiratory compromise, severe dehydration, sepsis, meningitis, or other systemic emergent condition at this time. Patient is aware that his condition can change from initial presentation and he needs to monitor symptoms closely and seek medical attention for any acute changes. Recommend conservative measures for symptoms. Recheck with your PCM in 2-3 days. Consider consult with Cardiology. Return to the ED with any worsening/concerning symptoms otherwise as reviewed in discharge. Patient is in agreement. - Vital Signs Vital signs: Temp Pulse Resp BP Pulse Ox 97.6 F 76 16 144/87 H 98 03/17/18 12:36 03/17/18 12:36 03/17/18 12:36 03/17/18 12:36 03/17/18 14:00 - Laboratory Result Diagrams: 03/17/18 13:20 03/17/18 13:20 Laboratory results interpreted by me: 03/17/18 13:20 Chloride 110 H Lipase 689.8 H Discharge - Discharge Clinical Impression: Chest wall pain, Atypical chest pain, Acute URI, Weakness Condition: Stable Disposition: HOME, SELF-CARE Instructions: Chest Wall Pain ([facility]), Chest Pain of Unclear Cause ([facility]) Additional Instructions: Maintain adequate fluid and food intake healthy diet Monitor blood pressure daily and keep a log Monitor symptoms for any acute changes Recheck with your PCM in 2-3 days Consider a follow-up with cardiology Return to the ED with any worsening symptoms and/or development of fever, headache, chest pain, palpitations, syncope, shortness of breath, trouble breathing, abdominal pain, n/v/d, blood in stool/urine, loss of control of bowel/bladder, urinary retention, muscle weakness/paralysis, numbness/tingling, or other worsening symptoms that are concerning to you. Prescriptions: Doxycycline Hyclate 100 mg PO BID #20 capsule Forms: Elevated Blood Pressure Referrals: SILVER OROZCO DO [Primary Care Provider] - Follow up as needed DEMETRIO FERNANDEZ MD [ACTIVE STAFF] - Follow up as needed
[2018-03-17] MEDS ORDERED: NORMAL SALINE 1000 ML 1,000 ML IV ONE ×2 (14:11→15:37)
[2018-03-17 14:22] LABS: CREATINE KINASE MB 0.37 ng/mL (<4.55); TROPONIN I < 0.012 ng/mL
--- NOTE | 2018-03-17 14:31 | RADIOLOGY REPORT (SQ) ---
EXAM DESCRIPTION: CT HEAD WITHOUT COMPLETED DATE/TIME: 03/17/2018 2:21 pm REASON FOR STUDY: left arm numbness COMPARISON: None. TECHNIQUE: Axial images acquired through the brain without intravenous contrast. Images reviewed wi th bone, brain and subdural windows. Additional sagittal and coronal reconstructions were generated. Images stored on PACS. All CT scanners at this facility use dose modulation, iterative reconstruction, and/or weight based d osing when appropriate to reduce radiation dose to as low as reasonably achievable (ALARA). [facility]: Dose Right [facility]: CareDose [facility]: Dose Right [facility]: Teradose 4D [facility]: [employer] RADIATION DOSE: CT Rad equipment meets quality standard of care and radiation dose reduction techniq ues were employed. CTDIvol: 53.2 mGy. DLP: 1017 mGy-cm. mGy. LIMITATIONS: None. FINDINGS: VENTRICLES: Normal size and contour. CEREBRUM: No masses. No hemorrhage. No midline shift. No evidence for acute infarction. Normal gra y/white matter differentiation. No areas of low density in the white matter. CEREBELLUM: No masses. No hemorrhage. No alteration of density. No evidence for acute infarction. EXTRAAXIAL SPACES: No fluid collections. No masses. ORBITS AND GLOBE: No intra- or extraconal masses. Normal contour of globe without masses. CALVARIUM: No fracture. PARANASAL SINUSES: There is mucoperiosteal thickening in the right maxillary sinus. A small amount f luid in the left maxillary sinus. Many of the ethmoid air cells are opacified. SOFT TISSUES: No mass or hematoma. OTHER: No other significant finding. IMPRESSION: SINUS DISEASE. NO ACUTE INTRACRANIAL IMAGING FINDINGS. EVIDENCE OF ACUTE STROKE: NO. COMMENT: Quality ID # [id number]: Final reports with documentation of one or more dose reduction techniques (e.g., Automated exposure control, adjustment of the mA and/or kV according to patient size, use of iterative reconstruction technique) TECHNICAL DOCUMENTATION: JOB ID: [id number] [employer]- All Rights Reserved Reading location - IP/workstation name: [email or web address]
[2018-03-17] MEDS ORDERED: KETOROLAC TROMETHAMINE INJ/PF 30 MG/1 ML SDV IV ONE (15:54)
[2018-03-17 18:51] VITALS: BP 126/59
--- NOTE | 2018-03-17 22:57 | EKG REPORT ---
SEVERITY:- NORMAL ECG - SINUS RHYTHM : Confirmed by: Yuridia Kat MD 17-Mar-2018 22:56:03
== END 2018-03-17 18:51 | disposition home or self-care (01) ==
LOC: ER 12:12
DX: J06.9 Acute upper respiratory infection, unspecified (principal); R07.89 Other chest pain; R53.1 Weakness; R20.0 Anesthesia of skin; H53.8 Other visual disturbances; R51 Headache; R05 Cough; I25.10 Atherosclerotic heart disease of native coronary artery without angina pectoris; I10 Essential (primary) hypertension; J45.909 Unspecified asthma, uncomplicated; I25.2 Old myocardial infarction
CPT/HCPCS: 93005; 99285; 96361; 96374; 36415; 82553; 82550; 83690; 85025; 80053; 84484; 85379; 71045; 70450; 93010; J1885; J7030